=== PATIENT | male | born 1985 | race Caucasian/White ===

== ENCOUNTER 2019-09-29 08:04 | Emergency (ER) | payer OTHER ==
[~2019-09-29] VITALS: Ht 190.5 cm; Wt 115.7 kg
[2019-09-29] MEDS ORDERED: MONDOXYNE NL100 MG PO (09:21)
== END 2019-09-29 09:35 | disposition home or self-care (01) ==
LOC: ER 08:04
DX: S20.462A Insect bite (nonvenomous) of left back wall of thorax, initial encounter (principal); W57.XXXA Bitten or stung by nonvenomous insect and other nonvenomous arthropods, initial encounter
CPT/HCPCS: 99282